=== PATIENT | female | born 1980 | race Caucasian/White ===

== ENCOUNTER 2022-10-09 05:43 | Emergency (ER) | payer MEDICAID ==
[~2022-10-09] VITALS: Ht 162.6 cm; Wt 103.6 kg
[2022-10-09] MEDS ORDERED: HYDROCODONE/ACETAMINOPHEN 10/325MG TABLET PO ONE (09:00)
[2022-10-09] MEDS ORDERED: KETOROLAC 60MG/2ML VIAL IM ONE (09:00)
[2022-10-09] MEDS ORDERED: HYDR-4001 MT (09:51)
[2022-10-09] MEDS ORDERED: DICL75TA5 MT (09:51)
[2022-10-09 10:40] VITALS: BP 121/74
== END 2022-10-09 10:42 | disposition home or self-care (01) ==
LOC: ER 05:43
DX: M25.511 Pain in right shoulder (principal); I10 Essential (primary) hypertension; Z98.890 Other specified postprocedural states
CPT/HCPCS: 73030; 96372; 99283; J1885; Z7610; A4565